=== PATIENT | female | born 2000 | race Two or more races ===

== ENCOUNTER 2024-09-29 16:49 | Emergency (ER) | payer OTHER ==
[~2024-09-29] VITALS: Ht 160 cm; Wt 79.4 kg
[2024-09-29] MEDS ORDERED: ACETAMINOPHEN 500 MG GEL..CAP PO ONE ×2 (18:00→18:21)
== END 2024-09-29 20:16 ==
LOC: ER 16:49
DX: O26.892 Other specified pregnancy related conditions, second trimester (principal); Z3A.16 16 weeks gestation of pregnancy; R10.2 Pelvic and perineal pain; V43.52XA Car driver injured in collision with other type car in traffic accident, initial encounter; Y93.89 Activity, other specified; Y92.413 State road as the place of occurrence of the external cause

== ENCOUNTER 2024-10-25 09:27 | Outpatient (CLI) | payer OTHER | END 2024-10-25 09:28 | disposition home or self-care (01) | LOC: PRENATAL 09:27 | PROVIDERS: ATTEND Obstetrics & Gynecology Maternal & Fetal Medicine | DX: O44.00 Complete placenta previa NOS or without hemorrhage, unspecified trimester (principal); O26.20 Pregnancy care for patient with recurrent pregnancy loss, unspecified trimester; Z14.8 Genetic carrier of other disease; Z3A.20 20 weeks gestation of pregnancy ==

== ENCOUNTER 2025-01-17 12:23 | Outpatient (CLI) | payer OTHER | END 2025-01-17 12:24 | disposition home or self-care (01) | LOC: PRENATAL 12:23 | PROVIDERS: ATTEND Obstetrics & Gynecology Maternal & Fetal Medicine | DX: O26.849 Uterine size-date discrepancy, unspecified trimester (principal); O36.8130 Decreased fetal movements, third trimester, not applicable or unspecified; Z3A.33 33 weeks gestation of pregnancy ==

== ENCOUNTER → 2025-02-28 14:23 | Outpatient (CLI) | payer OTHER ==
[~2025-02-28 14:23] MED LIST: GLUCOMETERDEVICE {1, null}; GLUCOMETERSTRIP {1, null}; LANCETS {1, null}; PRENATAL TABLE1 EAC4 PO
== END | disposition home or self-care (01) ==
LOC: PRENATAL 14:23
PROVIDERS: ATTEND Obstetrics & Gynecology Maternal & Fetal Medicine
DX: O26.849 Uterine size-date discrepancy, unspecified trimester (principal); O36.8130 Decreased fetal movements, third trimester, not applicable or unspecified; Z3A.38 38 weeks gestation of pregnancy